=== PATIENT | female | born 1980 | race Caucasian/White ===

== ENCOUNTER 2020-09-04 11:49 | Emergency (ER) | payer SELFPAY ==
[2020-09-04 12:01] VITALS: BP 136/58; PULSE 64; TEMP 36.9; O2SAT 99
--- NOTE | 2020-09-04 12:43 | DI.RAD_ITS ---
Exam(s) XR FINGER RT MIDDLE EXAM: XR FINGER RT MIDDLE CLINICAL HISTORY: distal crush. TECHNIQUE: 2D digital imaging was performed. COMPARISON: No exams were available for comparison FINDINGS: BONES: Nondisplaced tuft fracture. No bony destructive lesion is seen. JOINTS: No dislocation present. SOFT TISSUE: Normal. No foreign body. IMPRESSION: nondisplaced tuft fracture DATA REPOSITORY: RADIATION DOSE DELIVERED:
--- NOTE | 2020-09-04 13:13 | DI.VRAD_ITS ---
PROCEDURE INFORMATION: Exam: XR Right Finger(s) Exam date and time: 09/04/2020 12:20 PM Age: 40 years old Clinical indication: Finger(s); Patient HX: Right middle finger pain, after slamming finger in door today. TECHNIQUE: Imaging protocol: XR Right fingers. Views: Minimum 2 views. COMPARISON: No relevant images were readily available for comparison purposes. FINDINGS: Bones/joints: There is an acute appearing nondisplaced tuft fracture of the 3rd digit distal phalanx. Soft tissues: Soft tissue swelling. IMPRESSION: Acute nondisplaced fracture 3rd digit distal phalanx. Dictated and Authenticated by: Gee Andrade MD. Ordering:FUENTES Schwartz MD
--- NOTE | 2020-09-04 13:30 | W.ED.GENAD ---
Discharge Plan Disposition Patient Disposition: HOME Condition: Good Discharge Details Clinical Impression: Finger fracture, Subungual hematoma Primary Care Provider: Unknown,Unknown ED Provider: Lana Hurley Home Meds and New Rx's Prescriptions: Continued sertraline [Zoloft] 25 mg Tablet 25 mg PO DAILY RF: 0 Discharge Instructions Instructions: Finger Fracture (ED) Additional Instructions: You have a very small fracture of your middle finger. Please encourage rest, ice, elevation. Tylenol and/or ibuprofen as needed for discomfort. Please call orthopedics on Saturday to schedule follow-up appointment, number listed below. If you develop any fever/chills, increased pain or other new/worsening symptoms please seek care urgently once again. Please continue with splint until evaluated by. Referrals: Smooth Dobson MD [ [facility] STAFF PHYSICIAN] - Discharge Data Discharge Date/Time-TO BE ENTERED AT DEPARTURE: 09/04/20 14:06 Medical Decision Making Patient is a pleasant 40 year old RHD female, accompanied by with c/c of right middle finger after closing her hand in car door. Denies other injury at the time of the incidence. She is very anxious. On exam, patient appears uncomfortable. She declines analgesics as she is concerned for GI upset, would prefer block. Intact capillary refill and sensation. Ecchymosis at base of nail bed. Nail bed is intact. Ecchymosis is on pad of distal phalanx. No palpable deformity. No pain proximal to this area. Patient and I discussed risks/benefits as well as expected procedural steps of block. She voices understanding and wishes to proceed. Using standard, sterile technique, digital block was preformed using 1% Lidocaine plain. 4cc was used, this gave good relief for the patient. Will obtain xr as I am concerned for distal tuft fracture. FINDINGS: Bones/joints: There is an acute appearing nondisplaced tuft fracture of the 3rd digit distal phalanx. Soft tissues: Soft tissue swelling. IMPRESSION: Acute nondisplaced fracture 3rd digit distal phalanx. Discussed findings with the patient. Will splint and encourage RICE. Patient I did discuss trephination. SHe declined further intervention. Would prefer splinting alone. Very reasonable option. Encouraged rest, ice, elevation. Tylenol and/or ibuprofen as needed for discomfort. Will refer to orthopedics for finger fracture. Return precautions were discussed. All the questions and concerns were addressed, she is in agreement this plan HPI General Mode of arrival: ambulatory. Date/Time Provider Initiated Documentation: 09/04/20 12:19. Limitations to Documentation: no limitations. Information obtained by: patient, family and RN notes reviewed. History of Present Illness 40 year old F presents to the emergency department with the chief complaint of right middle finger injury, described as severe, with intensity rated at 10. Quality is described as stabbing (and throbbing), and is localized to the right and upper extremity. Patient reports no radiation. Patient started experiencing this minute(s) and it has been constant. Immobilization improves symptom(s), Movement worsens symptoms . Patient notes no other symptoms.. Patient did receive the following treatments prior to arrival, none Related Data Home Medications Medication Instructions Recorded Confirmed sertraline [Zoloft] 25 mg PO DAILY 09/04/20 09/04/20 Allergies Allergy/AdvReac Type Severity Reaction Status Date / Time No Known Allergies Allergy Unverified 09/04/20 12:05 General Stated Complaint: Orthopedic DEIRDRE: 4 Review of Systems Constitutional Constitutional: Reports as per HPI, Denies chills, Denies fever(s), Denies headache(s) and Denies weakness ENT Ears, Nose, Mouth, and Throat: Denies headache(s) Cardiovascular Cardiovascular: Reports as per HPI Respiratory Respiratory: Reports as per HPI and Denies cough Musculoskeletal Musculoskeletal: Reports as per HPI and Reports tingling Integumentary/Breasts Skin/Breast: Reports as per HPI and Denies wounds (ecchymosis, no open wounds) Neurologic Neurologic: Reports as per HPI, Denies headache(s), Reports tingling, Denies paresthesias and Denies weakness [facility] Social History Smoking/Tobacco Use Status: Current every day Tobacco Type: cigarettes Smoking risk assessment performed?: Yes Alcohol Intake: current Alcohol Intake frequency: 0-2 drinks per day Alcohol type: beer Drug use: Never Substance use type: does not use Do you feel safe at home: Yes Do you feel safe in your relationship?: Yes Exam Const General: cooperative, healthy appearing, uncomfortable, no acute distress, well developed, well groomed and anxious Nutritional Appearance: average body habitus and well nourished Orientation: alert and awake Resp Effort & Inspection: normal respiratory effort, able to speak in complete sentences and no respiratory distress Cardio Rate: regular rate Rhythm: regular rhythm Skin General skin exam: ecchymosis Neuro General: patient alert and patient awake Cognition: normal cognition Speech: speech normal Gait: normal gait Motor: muscle tone normal throughout Sensory Exam: no sensory deficits noted Extrem Hand/finger images: 1. ecchymosis at the proximal aspect of the fingernail bed. Ecchymosis on the pad of the dorsal aspect of the hand. Pain over the distal phalanx. Intact sensation, intact capillary refill. No bleeding. No palpable deformity Psych Appearance: grossly normal and well kempt Mental Status: mental status grossly normal Speech and Movement: speech and movement normal Course Vital Signs Vital signs: Vital Signs Temperature 36.9 C 09/04/20 12:01 Pulse 64 09/04/20 12:01 Blood Pressure 136/58 L 09/04/20 12:01 Pulse Oximetry 99 09/04/20 12:01 Temperature 36.9 C 09/04/20 12:01 Temperature Source Temporal Artery Scan 09/04/20 12:01 Pulse 64 09/04/20 12:01 Respiratory Effort Non-Labored 09/04/20 12:03 Blood Pressure 136/58 L 09/04/20 12:01 Blood Pressure Position Sitting 09/04/20 12:01 Pulse Oximetry 99 09/04/20 12:01 Oxygen Delivery Method Room Air 09/04/20 12:01 Oxygen Flow Rate 0 09/04/20 12:01 Pain Level 10 09/04/20 12:01
== END 2020-09-04 14:06 | disposition home or self-care (01) ==
PROVIDERS: Emergency Provider Physician Assistant
DX: S67.192A Crushing injury of right middle finger, initial encounter (principal); S62.662A Nondisplaced fracture of distal phalanx of right middle finger, initial encounter for closed fracture; W23.1XXA Caught, crushed, jammed, or pinched between stationary objects, initial encounter
CPT/HCPCS: 26750; 73140